=== PATIENT | male | born 1945 | race Caucasian/White ===

== ENCOUNTER 2018-12-22 16:32 | Emergency (ER) | payer OTHER ==
[2018-12-22] MEDS ORDERED: Oxymetazoline 0.05% NASAL SPR* 15 ML BTL BOTH NARES ONE (16:58)
[2018-12-22] MEDS ORDERED: Lidocaine 2% JELLY* 10 ML JELLY TOPICAL ONE (16:59)
[2018-12-22] MEDS ORDERED: Tranexamic Acid 1,000 MG/10 ML SDV TOPICAL ONE (16:59)
--- NOTE | 2018-12-22 17:03 | ED ---
Throat Pain/Nasal Congestion - HPI Summary HPI Summary: 73-year-old male presents with nosebleed today. He states nosebleed has been recurrent for the past week. He states he has history of recurrent sinus issues. He is on the blood thinners. He states since 11am today he's been having consistent nosebleed. Denies any dizziness. No chest pain or shortness breath. No other symptoms. States this just coming out of his right nostril. - History of Current Complaint Chief Complaint: EDEpistaxis Time Seen by Provider: 12/22/18 16:54 - Allergies/Home Medications Allergies/Adverse Reactions: Allergies Allergy/AdvReac Type Severity Reaction Status Date / Time MS Lisinopril [Lisinopril] Allergy Unknown Verified 02/24/15 14:50 Reaction Details MS Losartan [Losartan] Allergy Unknown Verified 02/24/15 14:50 Reaction Details CARDIA Allergy Difficulty Uncoded 02/24/15 14:50 Breathing PMH/Surg Hx/FS Hx/Imm Hx Endocrine/Hematology History: Reports: Other Endocrine/Hematological Disorders - polycythemia vera Denies: Hx Diabetes, Hx Systemic Lupus Erythematosus, Hx Thyroid Disease Cardiovascular History: Reports: Hx Hypercholesterolemia, Hx Hypertension Denies: Hx Congestive Heart Failure, Hx Pacemaker/ICD, Hx Peripheral Vascular Disease Respiratory History: Reports: Hx Seasonal Allergies, Other Respiratory Problems/ Disorders - sinusitis, PE History: Reports: Hx Benign Prostatic Hyperplasia Denies: Hx Dialysis, Hx Renal Disease Musculoskeletal History: Denies: Hx Rheumatoid Arthritis, Hx Osteoporosis Sensory History: Reports: Hx Contacts or Glasses - reading glasses Denies: Hx Hearing Aid Opthamlomology History: Reports: Hx Contacts or Glasses - reading glasses Neurological History: Denies: Hx Headaches, Hx Transient Ischemic Attacks (TIA) Psychiatric History: Denies: Hx Panic Disorder - Surgical History Surgery Procedure, Year, and Place: wisdom teeth removal as teen; [place] [place]/ ORAL SURGERY Infectious Disease History: No Infectious Disease History: Denies: Traveled Outside the [place] in Last 30 Days - Family History Known Family History: Positive: Non-Contributory - Social History Alcohol Use: unknown Substance Use Type: Reports: None Smoking Status (MU): Never Smoked Tobacco Review of Systems Negative: Fever Positive: Epistaxis Negative: Chest Pain Negative: Shortness Of Breath All Other Systems Reviewed And Are Negative: Yes Physical Exam Triage Information Reviewed: Yes Vital Signs On Initial Exam: Initial Vitals Temp Pulse Resp BP Pulse Ox 97.8 F 65 19 156/88 98 12/22/18 16:39 12/22/18 16:39 12/22/18 16:39 12/22/18 16:39 12/22/18 16:39 Vital Signs Reviewed: Yes Appearance: Positive: Well-Appearing Skin: Positive: Warm, Dry Head/Face: Positive: Normal Head/Face Inspection Eyes: Positive: Normal, EOMI, INDRA, Conjunctiva Clear ENT: Positive: Pharynx normal, TMs normal, Other - nosebleed from right nares Respiratory/Lung Sounds: Positive: Clear to Auscultation, Breath Sounds Present Cardiovascular: Positive: Normal, RRR Musculoskeletal: Positive: Normal Neurological: Positive: Normal Psychiatric: Positive: Normal Procedures - Sedation Patient Received Moderate/Deep Sedation with Procedure: No Diagnostics - Vital Signs Vital Signs Temp Pulse Resp BP Pulse Ox 12/22/18 16:39 97.8 F 65 19 156/88 98 - Laboratory Lab Statement: Any lab studies that have been ordered have been reviewed, and results considered in the medical decision making process. Re-Evaluation - Re-Evaluation First Eval Re-Evaluation Time: 17:25 Comment: bleeding stopped see area could silver nitrate EENT Course/Dx - Course Course Of Treatment: 73-year-old male presents with nosebleed today. He states nosebleed has been recurrent for the past week. He states he has history of recurrent sinus issues. He is on the blood thinners. He states since 11am today he's been having consistent nosebleed. Denies any dizziness. No chest pain or shortness breath. No other symptoms. States this just coming out of his right nostril. on exam blood coming out of right nostril. applied afrin and txa and bleeding stopped. see potential area to silver nitrate and attempted to do so and rebleed occurred so had to rhinorocket. tolerated procedure well. will have follow up with ENT. placed on augmentin. patient understand and agrees with plan. - Differential Diagnoses Differential Diagnoses: Epistaxis, Sinusitis, URI/Bronchitis - Diagnoses Provider Diagnoses: Epistaxis Discharge ED - Sign-Out/Discharge Documenting (check all that apply): Patient Departure - Discharge Plan Condition: Good Disposition: HOME Prescriptions: Amoxicillin/Clavulanate TAB* [Augmentin TAB 875*] 875 mg PO BID #8 tab Patient Education Materials: Nosebleed (ED) Referrals: Deuce Wilkerson MD [Primary Care Provider] - Tylor Mehta MD [Medical Doctor] - Additional Instructions: take augmentin twice a day for 4 days follow up with ENT within 2-3 days, call office Monday Return to ED if develop any new or worsening symptoms - Billing Disposition and Condition Condition: GOOD Disposition: Home
[2018-12-22] MEDS ORDERED: Lidocaine 2% JELLY* 6 ML JELLY TOPICAL ONE (17:05)
[2018-12-22] MEDS ORDERED: Silver Nitrate/Potassium Nitr* 1 EA STICK TOPICAL ONE (17:25)
[2018-12-22] MEDS ORDERED: Silver Nitrate/Potassium Nitr* 1 EA STICK ONE (17:26)
[2018-12-22] MEDS ORDERED: Amoxicillin/Clavulanate TAB* 875 MG PO ONE (17:38)
--- OUTSIDE RECORDS SUMMARY | 2018-12-22 18:14 | XMS REPORT | Continuity of Care Document ---
:1945 External Reference #:[id number] Author Name Augustus Hawthorne M.D. Address [address] [place] [address] Care Team Providers Name Role Phone Jose Cantu D.O. - Cardiovascular Care Team Information Director Religious Education [phone] Disease Deuce Wilkerson M.D. - Internal Care Team Information Director Religious Education Medicine Problems Active Problems Provider Date Sinusitis Onset: Note: OCCASIONALLY FH: Glaucoma Augustus Hawthorne M.D. Onset: 11/17/2016 Vitreous degeneration Augustus Hawthorne M.D. Onset: 08/26/2014 Pseudophakia Augustus Hawthorne M.D. Onset: 08/26/2014 Ocular hypertension Augustus Hawthorne M.D. Onset: 08/26/2014 Social History Type Date Description Comments Sex Unknown ETOH Use Occasionally consumes alcohol Tobacco Use Start: Unknown Patient has never smoked Recreational Drug Use Denies Drug Use Smoking Status Reviewed: 11/29/18 Patient has never smoked Allergies, Adverse Reactions, Alerts Active Allergies Reaction Severity Comments Date Lisinopril 08/26/2014 Medications Active Medications SIG Qnty Indications Ordering Provider Date Spironolactone Unknown 25mg Tablets Carvedilol Unknown 3.125mg Tablets Hydralazine HCL Unknown 25mg Tablets Atorvastatin Calcium Unknown 20mg Tablets Aspir-Low Unknown 81mg Tablets DR Vitamin D every day Unknown 1000Unit Tablets Vitamin B12 Unknown 1000mcg Tablets ER Isosorbide Mononitrate Take 1 Tablet By Unknown ER Mouth Every Day 30mg Tablets ER 24HR Immunizations Description No Information Available Vital Signs Description No Information Available Results Description No Information Available Procedures Description No Information Available Medical Devices Description No Information Available Encounters Description No Information Available Assessments Date Code Description Provider 11/29/2018 Z83.511 Family history of glaucoma Augustus Hawthorne M.D. 11/29/2018 H40.053 Ocular hypertension, bilateral Augustus Hawthorne M.D. 11/29/2018 H43.813 Vitreous degeneration, bilateral Augustus Hawthorne M.D. 11/29/2018 Z96.1 Presence of intraocular lens Augustus Hawthorne M.D. Plan of Treatment 11/29/2018 - Augustus Hawthorne M.D.Z83.511 Family history of glaucomaComments: Smoking can increase the risk of developing or worsening any eye related disease , as well as affect your overall health. If you are a smoker, we strongly recommend that you quit.If you are not a smoker, we strongly recommend that you do not start. Having a family history of glaucoma is a risk factorfor the possibility of you developing glaucoma. However, having a family history does not mean you show any signs of glaucoma now, or will develop glaucoma in the future. It is important that you have a dilated eye exam annually, because even though glaucoma is a treatable disease, it does not presentitself with any signs or symptoms.Follow up:1 Year Follow Up You can expect to have your eyes dilated at your next visit. If Dr. Hawthorne orders any additional testing, it may require extra time. We recommend that you bring sunglasses, as dilationdrops often make you light sensitive until they wear off. We always recommend you bring someone to drive you home if you are uncomfortable driving with your eyes dilated. If you have any questions before your next visit, feel free to call our office at .H40.053 Ocular hypertension, bilateralComments:You have Ocular Hypertension in both eyes. This means that your eye pressure is higher than average, but you have not been diagnosed with Glaucoma.H43.813 Vitreous degeneration, [id number] Presence of intraocular lensComments:The artificial lens implants in both eyes appear to be stable at this time. Functional Status Description No Information Available Mental Status Description No Information Available Referrals Description No Information Available
--- OUTSIDE RECORDS SUMMARY | 2018-12-22 18:14 | XMS REPORT | Continuity of Care Document ---
:1945 External Reference #:[id number] Author Name Deuce Wilkerson M.D. (transmitted by agent of provider Princess Schultz) Address [address], [place] [address] Care Team Providers Name Role Phone Maria G Toney MD - Care Team Information Cancer Program Coordinator [phone] Dermatology Mya Philippe MD - Hematology & Care Team Information Cancer Program Coordinator [phone] Oncology Jose Cantu DO, [facility] - Care Team Information Cancer Program Coordinator [phone] Cardiovascular Disease Deuce Wilkerson III, MD - Internal Care Team Information Cancer Program Coordinator Medicine Problems Active Problems Provider Date Obstructive sleep apnea syndrome Hanny Rangel MD Onset: 08/27/2015 Note: not on CPAP Impaired fasting glycaemia Rafa Sparrow M.D.,FACP Onset: 04/19/2007 Secondary polycythemia Hanny Rangel MD Onset: 07/14/2015 Note: due to untreated apnea Right bundle branch block Rafa Sparrow M.D.,FACP Onset: 04/19/2007 Idiopathic peripheral neuropathy Sujey Liang, N.P. Onset: 2010 Essential hypertension Rafa Sparrow M.D.,FACP Onset: 09/12/2014 H/O: pulmonary embolus Rafa Sparrow M.D.,FACP Onset: 02/11/2015 Primary cardiomyopathy Rafa Sparrow M.D.,FACP Onset: 10/09/2015 Note: EF 45%, now 50-55% Social History Type Date Description Comments Sex Unknown Tobacco Use Start: Unknown Never Smoked Cigarettes ETOH Use 10/10/2016 Denies alcohol use Recreational Drug Use Denies Drug Use Tobacco Use Start: Unknown Patient has never smoked Smoking Status Reviewed: 12/17/18 Patient has never smoked Exercise Type/Frequency Exercises sporadically active around the house, walks on occ Allergies, Adverse Reactions, Alerts Active Allergies Reaction Severity Comments Date Lisinopril rash/cough 08/10/2010 Losartan difficulty swallowing 02/10/2015 Cartia Edema 02/10/2015 Amlodipine per pt 02/11/2015 Inactive Allergies NKDA 04/19/2007 Medications Active Medications SIG Qnty Indications Ordering Date Provider Carvedilol 1 by mouth twice 180tabs Jose S. 08/10/2017 3.125mg a day Cantu, DO FACC Tablets Live Garlic as directed Unknown 07/13/2015 Gel Vitamin D3 1 by mouth every Unknown 07/13/2015 2000Unit day Capsules Hydralazine HCL take one tablet 270tabs I10 Jose S. 03/02/2015 25mg three times a day Cantu, DO FACC Tablets Isosorbide Mononitrate 1 by mouth every 90tabs Jose S. 02/05/2015 ER day Cantu, DO FACC 30mg Tablets ER 24HR Triamcinolone every day as 45gm Deuce Waters 02/23/2012 Acetonide needed Ish Wilkerson 0.1% Ointment Aspirin Ec 1 by mouth every Unknown 81mg Tablets day PM DR Moss 1/2 -/3 Unknown Tinture dropperful daily Turmeric daily Unknown Vitamin B12 Daily Unknown Magnesium 1 by mouth every Unknown 250mg Tablets day Super Echinacea 1/2 dropperful Unknown Tinture daily Wild Geranium daily evening Unknown Tinture Reishi daily Evening Unknown Tinture Atorvastatin Calcium take 1/2 tablet 90tabs Jose S. 20mg at bedtime Cantu, DO FACC Tablets Spironolactone 1 by mouth every 90tabs Jose S. 25mg day Cantu, DO FACC Tablets Melatonin Maximum 1 tab by mouth Unknown Strength every night as 5mg Tablets needed Medications Administered in Office Medication SIG Qnty Indications Ordering Provider Date Inj, Regadenoson, 0.1 MG Jose Cantu, DO [facility] 02/26/2015 Injection Technetium TC 99M Jose Cantu, DO [facility] 02/26/2015 Tetrofosmin, Per Unit Dose Up To 40 Millicuries Injection Immunizations CPT Code Status Date Vaccine Lot # [id number] Given 11/07/2018 Influenza Virus Vaccine, Quadrivalent, Split, Preservative Free 27027 Given 12/01/2017 Zoster (Shingles) Vaccine (HZV), Recombinant, Subunit, Adjuvanted 83948 Given 11/10/2017 Influenza Virus Vaccine, Quadrivalent, Split, Preservative Free 33480 Given 07/10/2017 Zoster (Shingles) Vaccine (HZV), Recombinant, Subunit, Adjuvanted [id number] Given 11/23/2015 Fluzone Vaccine 55881 Given 09/12/2014 Pneumococcal Conjugate Vaccine 13 Valent For [id number] Intramuscular Use 80621 Given 12/06/2012 Flu Vaccine Split Virus Preservative Free For Indiv 3Yr Older Q2037 Given 12/03/2011 Fluvirin Im 3Yrs And Older [id number] 66141 Given 12/06/2009 Influenza Virus 3Yrs & Over 54802 Given 07/31/2009 Tetanus And Diptheria (Td) For Adult Use Preservative Free 87794 Given 06/17/2008 Pneumonia Vaccine [id number] 96093 Given 06/12/2007 Zoster (Zostavax) 77499 Given 06/12/2007 Zoster (Zostavax) [id number] Vital Signs Date Vital Result Comment 12/17/2018 3:12pm Height 66.5 inches 5'6.50" Weight 172.00 lb Heart Rate 60 /min BP Systolic Sitting 132 mmHg BP Diastolic Sitting 70 mmHg BMI (Body Mass Index) 27.3 kg/m2 11/20/2018 1:02pm Height 66.5 inches 5'6.50" Weight 177.00 lb Heart Rate 59 /min BP Systolic Sitting 119 mmHg BP Diastolic Sitting 70 mmHg BMI (Body Mass Index) 28.1 kg/m2 Results Test Date Facility Test Result H/L Range Note CBC Auto 12/05/2018 [facility] White Blood 6.3 10^3/uL Normal 3.5-10.[address] [place] [address] [phone] Red Blood Count 5.69 10^6/uL High 4.18-5.48 Hemoglobin 13.3 g/dL Low 14.0-18.0 Hematocrit 42 % Normal 42-52 Mean Corpuscular Volume 74 fL Low 80-94 1 Mean Corpuscular Hemoglobin 23 pg Low 27-31 Mean Corpuscular HGB Conc 32 g/dL Normal 31-36 Red Cell Distribution Width 20 % High 10-15 Platelet Count 201 10^3/uL Normal 150-450 Mean Platelet Volume 6.8 fL Low 7.4-10.4 Abs Neutrophils 4.2 10^3/uL Normal 1.5-7.7 Abs Lymphocytes 1.1 10^3/uL Normal 1.0-4.8 Abs Monocytes 0.6 10^3/uL Normal 0-0.8 Abs Eosinophils 0.2 10^3/uL Normal 0-0.6 Abs Basophils 0.1 10^3/uL Normal 0-0.2 Abs Nucleated RBC 0.0 10^3/uL Granulocyte % 67.4 % Lymphocyte % 18.0 % Monocyte % 9.4 % Eosinophil % 3.8 % Basophil % 1.4 % Nucleated Red Blood Cells % 0.1 Laboratory test 11/20/2018 [facility] Ferritin 4.1 ng/mL Low 24-[address] [place] [address] [phone] Iron & Iron Binding 11/20/2018 [facility] Iron 34 g/dL Low 50-212 [address] [place] [address] [phone] Unsaturated Iron Binding < 353 g/dL Total Iron Binding Capacity 368 g/dL Normal 250-450 Transferrin 263 mg/dL Normal 203-362 % Iron Saturation 9 % Low 15-55 Laboratory test 11/20/2018 [facility] Hemoglobin A1c 6.6 % High 4.0-5.6 2 finding 101 (Glyco HGB) [place] [address] [phone] Lipid Profile 11/14/2018 [facility] Triglycerides 72 3 (Trig/Chol/HDL) [address] [facility] mg/[place] [address] [phone] Cholesterol 95 mg/dL 4 HDL Cholesterol 32.3 mg/dL 5 LDL Cholesterol 48 mg/dL 6 Basic Metabolic 11/14/2018 [facility] Sodium 138 mmol/L Normal 135-[address] [place] [address] [phone] Potassium 4.5 mmol/L Normal 3.5-5.0 Chloride 105 mmol/L Normal 101-111 Co2 Carbon Dioxide 28 mmol/L Normal 22-32 Anion Gap 5 mmol/L Normal 2-11 Glucose 125 mg/dL High 70-100 Blood Urea Nitrogen 13 mg/dL Normal 6-24 Creatinine 0.98 mg/dL Normal 0.67-1.17 BUN/Creatinine Ratio 13.3 Normal 8-20 Calcium 8.9 mg/dL Normal 8.6-10.3 Egfr Non- 74.6 >60 Egfr 90.2 >60 7 CBC Auto 11/14/2018 [facility] White Blood 4.9 10^3/uL Normal 3.5-10.[address] [place] [address] [phone] Red Blood Count 5.75 10^6/uL High 4.18-5.48 Hemoglobin 13.3 g/dL Low 14.0-18.0 Hematocrit 42 % Normal 42-52 Mean Corpuscular Volume 73 fL Low 80-94 8 Mean Corpuscular Hemoglobin 23 pg Low 27-31 Mean Corpuscular HGB Conc 32 g/dL Normal 31-36 Red Cell Distribution Width 21 % High 10-15 Platelet Count 201 10^3/uL Normal 150-450 Mean Platelet Volume 7.0 fL Low 7.4-10.4 Abs Neutrophils 3.4 10^3/uL Normal 1.5-7.7 Abs Lymphocytes 0.9 10^3/uL Low 1.0-4.8 Abs Monocytes 0.4 10^3/uL Normal 0-0.8 Abs Eosinophils 0.2 10^3/uL Normal 0-0.6 Abs Basophils 0.1 10^3/uL Normal 0-0.2 Abs Nucleated RBC 0.0 10^3/uL Granulocyte % 68.2 % Lymphocyte % 18.2 % Monocyte % 8.4 % Eosinophil % 3.3 % Basophil % 1.9 % Nucleated Red Blood Cells % 0.1 1 Consistent with Previous Results Reported on 11/14/18 2 Therapeutic target for the treatment of diabetes mellitus patients is <7% HBA1C, and in selective patients <6.0%. Please refer to [place] [employer] diabetic care guidelines for further information. 3 Desirable: <150 Borderline High: 150-199 High: 200-499 Very High: >500 4 Desirable: <200 Borderline High: 200-239 High: >239 5 Low: <40 Desirable: 40-60 High: >60 6 Desirable: <100 Near Optimal: 100-129 Borderline High: 130-159 High: 160-189 Very High: >189 7 Because ethnic data is not always readily available, this report includes an eGFR for both -Americans and non- Americans. The National Kidney Disease Education Program (NKDEP) does not endorse the use of the MDRD equation for patients that are not between the ages of 18 and 70, are , have extremes of body size, muscle mass, or nutritional status, or are non- or non-. According to the National Kidney Foundation, irrespective of diagnosis, the stage of the disease is based on the level of kidney function: Stage Description GFR(mL/min/1.73 m(2)) 1 Kidney damage with normal or decreased GFR 90 2 Kidney damage with mild decrease in GFR 60-89 3 Moderate decrease in GFR 30-59 4 Severe decrease in GFR 15-29 5 Kidney failure <15 (or dialysis) 8 Consistent with Previous Results Reported on 06/06/18. Procedures Date Code Description Status 09/22/2009 79265015 Colonoscopy Completed Medical Devices Description No Information Available Encounters Description No Information Available Assessments Date Code Description Provider 12/17/2018 E11.9 Type 2 diabetes mellitus without Deuce Wilkerson M.D. complications 11/20/2018 Z00.00 Encounter for general adult medical Deuce Wilkerson M.D. examination without abnormal findings 11/20/2018 I10 Essential (primary) hypertension Deuce Wilkerson M.D. 11/20/2018 E78.2 Mixed hyperlipidemia Deuce Wilkerson M.D. 11/20/2018 G47.33 Obstructive sleep apnea (adult) (pediatric) Deuce Wilkerson M.D. 11/20/2018 Z86.711 Personal history of pulmonary embolism Deuce Wilkerson M.D. 11/20/2018 D64.9 Anemia, unspecified Deuce Wilkerson M.D. 11/20/2018 R73.01 Impaired fasting glucose Deuce Wilkerson M.D. Plan of Treatment Future Appointment(s):06/18/2019 3:00 pm - Deuce Wilkerson M.D. at [facility]05/21/2019 4:00 pm - Deuce Wilkerson M.D. at [facility]12/17/2018 - Deuce Wilkerson M.D.E11.9 Type 2 diabetes mellitus without complicationsFollow up:6 months or prn Functional Status Description No Information Available Mental Status Description No Information Available Referrals Description No Information Available
--- OUTSIDE RECORDS SUMMARY | 2018-12-22 18:14 | XMS REPORT | Continuity of Care Document ---
:1945 External Reference #:[id number] Author Name Deuce Wilkerson M.D. (transmitted by agent of provider Christiane Stiles ) Address [address], [place] [address] Care Team Providers Name Role Phone Maria G Toney MD - Care Team Information Instrument Technician [phone] Dermatology Mya Philippe MD - Hematology & Care Team Information Instrument Technician [phone] Oncology Jose Cantu DO, [facility] - Care Team Information Instrument Technician [phone] Cardiovascular Disease Deuce Wilkerson III, MD - Internal Care Team Information Instrument Technician Medicine Problems Active Problems Provider Date Obstructive [...] Patient has never smoked Smoking Status Reviewed: 11/20/18 Patient has never smoked Exercise Type/Frequency Exercises [...] ER 24HR Triamcinolone every day as 45gm Rafa Lopez 02/23/2012 Acetonide needed Ish Sparrow,NISHAP 0.1% Ointment Aspirin Ec 1 by mouth every Unknown 81mg Tablets day PM DR Moss 1/2 -/3 Unknown Tinture dropperful daily Turmeric daily Unknown Vitamin B12 Daily Unknown Magnesium 1 by mouth every Unknown 250mg Tablets day Super Echinacea 1/2 dropperful Unknown Tinture daily Wild Geranium daily evening Unknown Tinture Reishi daily Evening Unknown Tinture Atorvastatin Calcium take 1 tablet at 90tabs Jose S. 20mg bedtime Cantu, DO FACC Tablets Spironolactone 1 by mouth every 90tabs Jose S. 25mg day Cantu, DO FACC Tablets Melatonin Maximum 1 tab by mouth Unknown Strength every night as 5mg Tablets needed Medications Administered in Office Medication SIG Qnty Indications Ordering Provider Date Inj, Regadenoson, 0.1 MG Jose Cantu, DO [facility] 02/26/2015 Injection Technetium TC 99M Jose Cantu, DO [facility] 02/26/2015 Tetrofosmin, Per Unit Dose Up To 40 Millicuries Injection Immunizations CPT Code Status Date Vaccine Lot # [id number] Given 11/07/2018 Influenza Virus Vaccine, Quadrivalent, Split, Preservative Free 15798 Given 12/01/2017 Zoster (Shingles) Vaccine (HZV), Recombinant, Subunit, Adjuvanted 58982 Given 11/10/2017 Influenza Virus Vaccine, Quadrivalent, Split, Preservative Free 52551 Given 07/10/2017 Zoster (Shingles) Vaccine (HZV), Recombinant, Subunit, Adjuvanted [id number] Given 11/23/2015 Fluzone Vaccine 66718 Given 09/12/2014 Pneumococcal Conjugate Vaccine 13 Valent For [id number] Intramuscular Use 32546 Given 12/06/2012 Flu Vaccine Split Virus Preservative Free For Indiv 3Yr Older Q2037 Given 12/03/2011 Fluvirin Im 3Yrs And Older [id number] 10869 Given 12/06/2009 Influenza Virus 3Yrs & Over 58892 Given 07/31/2009 Tetanus And Diptheria (Td) For Adult Use Preservative Free 62121 Given 06/17/2008 Pneumonia Vaccine [id number] 39268 Given 06/12/2007 Zoster (Zostavax) 91327 Given 06/12/2007 Zoster (Zostavax) [id number] Vital Signs Date Vital Result Comment 11/20/2018 1:02pm Height 66.5 inches 5'6.50" Weight 177.00 lb Heart Rate 59 /min BP Systolic Sitting 119 mmHg BP Diastolic Sitting 70 mmHg BMI (Body Mass Index) 28.1 kg/m2 10/12/2017 10:37am Height 66.5 inches 5'6.50" Weight 179.00 lb Heart Rate 62 /min BP Systolic Sitting 138 mmHg BP Diastolic Sitting 60 mmHg Body Temperature 97.2 F O2 % BldC Oximetry 93 % BMI (Body Mass Index) 28.5 kg/m2 Results Test Date Facility Test Result H/L Range Note Lipid Profile 11/14/2018 [facility] Triglycerides 72 mg/dL 1 (Trig/Chol/HDL) [address] [place] [address] [phone] Cholesterol 95 mg/dL 2 HDL Cholesterol 32.3 mg/dL 3 LDL Cholesterol 48 mg/dL 4 Basic Metabolic 11/14/2018 [facility] Sodium 138 mmol/L Normal 135-[address] [place] [address] [phone] Potassium 4.5 mmol/L Normal 3.5-5.0 Chloride 105 mmol/L Normal 101-111 Co2 Carbon Dioxide 28 mmol/L Normal 22-32 Anion Gap 5 mmol/L Normal 2-11 Glucose 125 mg/dL High 70-100 Blood Urea Nitrogen 13 mg/dL Normal 6-24 Creatinine 0.98 mg/dL Normal 0.67-1.17 BUN/Creatinine Ratio 13.3 Normal 8-20 Calcium 8.9 mg/dL Normal 8.6-10.3 Egfr Non- 74.6 >60 Egfr 90.2 >60 5 CBC Auto 11/14/2018 [facility] White Blood 4.9 10^3/uL Normal 3.5-10.[address] [place] [address] [phone] Red Blood Count 5.75 10^6/uL High 4.18-5.48 Hemoglobin 13.3 g/dL Low 14.0-18.0 Hematocrit 42 % Normal 42-52 Mean Corpuscular Volume 73 fL Low 80-94 6 Mean Corpuscular Hemoglobin 23 pg Low 27-31 [...] % Nucleated Red Blood Cells % 0.1 CBC Auto 06/06/2018 [facility] White Blood 5.3 10^3/uL Normal 3.5-10.[address] [place] [address] [phone] Red Blood Count 5.40 10^6/uL Normal 4.18-5.48 Hemoglobin 12.5 g/dL Low 14.0-18.0 Hematocrit 40 % Normal 36-46 Mean Corpuscular Volume 74 fL Low 80-94 Mean Corpuscular Hemoglobin 23 pg Low 27-31 Mean Corpuscular HGB Conc 32 g/dL Normal 31-36 Red Cell Distribution Width 19 % High 10.5-15 Platelet Count 221 10^3/uL Normal 150-450 Mean Platelet Volume 6.7 fL Low 7.4-10.4 Abs Neutrophils 3.7 10^3/uL Normal 1.5-7.7 Abs Lymphocytes 1.0 10^3/uL Normal 1.0-4.8 Abs Monocytes 0.5 10^3/uL Normal 0-0.8 Abs Eosinophils 0.1 10^3/uL Normal 0-0.6 Abs Basophils 0.1 10^3/uL Normal 0-0.2 Abs Nucleated RBC 0 10^3/uL Granulocyte % 68.7 % Lymphocyte % 18.2 % Monocyte % 9.3 % Eosinophil % 2.5 % Basophil % 1.3 % Nucleated Red Blood Cells % 0.1 1 Desirable: <150 Borderline High: 150-199 High: 200-499 Very High: >500 2 Desirable: <200 Borderline High: 200-239 High: >239 3 Low: <40 Desirable: 40-60 High: >60 4 Desirable: <100 Near Optimal: 100-129 Borderline High: 130-159 High: 160-189 Very High: >189 5 Because ethnic data is not always readily [...] 15-29 5 Kidney failure <15 (or dialysis) 6 Consistent with Previous Results Reported on 06/06/18. Procedures Date Code Description Status 09/22/2009 13662651 Colonoscopy Completed Medical Devices Description No Information Available Encounters Description No Information Available Assessments Date Code Description Provider 11/20/2018 Z00.00 Encounter for general adult medical [...] Deuce Wilkerson M.D. Plan of Treatment Future Appointment(s):05/21/2019 4:00 pm - Deuce Wilkerson M.D. at [facility] - [facility]11/20/2018 - Deuce Wilkerson M.D.Z00.00 Encounter for general adult medical examination without abnormal findingsComments: Vaccines current; (+) dental, eye exams. Colon exam due again next year. routine adult aerobic exercise goals reviewed with pt. Diet and some weight loss also [id number] Essential (primary) hypertensionComments:BPs good; continue Rx, home BP checksFollow up:6 months or prnE78.2 Mixed hyperlipidemiaComments:LDL only 48; suggested reducing Atorvastatin to 10 mg daily.G47.33 Obstructive sleep apnea (adult) (pediatric)Comments:Positional Rx only; no sleep c/oZ86.711 Personal history of pulmonary embolismComments:On low dose ASA RxD64.9 Anemia, unspecifiedComments:New microcytic anemia, likely fro frequent blood donations, but will check 3 day stool occult blood and iron levels. Pt advised to refrain from donations for now. Colon exam due again next year. (+)past heme eval for ? elevated Hgb, but no hematologic issue found per ptR73.01 Impaired fasting glucoseComments:Fasting sugar near DM level this year; continue diet efforts and will check A1c Functional Status Description No Information Available Mental Status Description No Information Available Referrals Description No Information Available
[2018-12-22 18:17] VITALS: BP 158/85
== END 2018-12-22 18:10 | disposition home or self-care (01) ==
LOC: ED 16:32
DX: R04.0 Epistaxis (principal); E78.00 Pure hypercholesterolemia, unspecified; I10 Essential (primary) hypertension; N40.0 Benign prostatic hyperplasia without lower urinary tract symptoms; Z88.8 Allergy status to other drugs, medicaments and biological substances
CPT/HCPCS: 99282; A9270-GY